=== PATIENT | male | born 1995 | race Caucasian/White ===

== ENCOUNTER 2017-06-23 19:44 | Emergency (ER) | payer MEDICAID ==
[~2017-06-23] VITALS: Ht 177.8 cm; Wt 70.8 kg
[~2017-06-23 19:44] MED LIST: ADVIL200 MG PO; AMOXICILLIN 50500 MG PO; FIORICET1 CAP PO; IBU800 MG PO; IBUPROFEN800 MG PO; KEFLEX 250MG.250 MG PO; NAPROSYN500 M1 PO; PREDNISONE 20MG20 MG PO; SINGULAIR10 MG PO; TESSALON PERLE100 MG PO; ZITHROMAX Z PA250 MG PO
--- NOTE | 2017-06-23 20:53 | Emergency Room Report ---
History of Present Illness Time Seen by 2009 Presenting Problem in Triage Pt arrived:Walked Presenting Problem:Laceration to right wrist from broken glass. Onset of symptoms date/time:06/23/1706/01/1900 or onset unknown for: Treatment Prior to Arrival: [employer]TE[employer]CE [employer] Provided by: Sepsis Risk Assessment: Temp: 97.4 B/P: 149/85 MAP: 106 Pulse: 89 Resp: 20 Recent fever? N Clinical Suspician of Infection? N Mental Status: 1 - Regular (Normal Baseline) Sepsis Risk:Low Sepsis Risk Have you (or family members/close friends) recently traveled outside the [place]? N If Yes, where/when: Have you had exposure to infectious disease within the past month? N TB? Other? Specify: Source patient, RN notes reviewed, old records Exam Limitations no limitations Comment lac rt volar wrist from window this pm Cardiac Chest Pain Chest pain indicative of cardiac No Timing/Duration this evening Severity moderate ALLERGIES Coded Allergies: Sulfa (Sulfonamide Antibiotics) (Mild, 12/09/15) cefaclor (From CECLOR) (Mild, 12/09/15) codeine (Mild, 12/09/15) erythromycin base (Mild, 12/09/15) Home Medications Active Scripts Ibuprofen (Ibuprofen 800MG) 800 MG PO QIDP PRN pain #30 TAB Prov: 04/07/17 History Medical History General CAD? No Angina: No AK: No Hypertension? No Hyperlipidemia? No CHF? No DVT? No PE? No COPD? No Asthma? Yes Anemia? No GERD? No Gastric ulcers? No GI Bleed? No Hernia? No Thyroid Problems? No Hypothyroidism? No CVA? No Seizures? No Diabetes? No Renal Insuffiency? No End Stage Renal Disease? No UTI? No Stones? No BPH? No GB Disease: No Nephritic Syndrome? No Asplenia? No Hepatitis? No Sickle Cell Disease? No Arthritis? No Migraines? Yes Cataracts? No Glaucoma? No MRSA? No HIV? No TB? No Anxiety? No Depression? No Cancer? No More? No Immunization Hx DT/Tetanus 1-4 Years Ago Surgical Hx Previous Surgery?Y BILATERAL HERNIA REPAIR ORAL SURGERY Family History Family Hx Diabetes No Hypertension No Cancer No TB No Social History Smoking Hx Smoker: Current Every Day Smoker Tobacco: Yes Type Cigarettes Packs/day < 1 Pack Are you/the child exposed to second-hand smoke: Yes Alcohol Alcohol: No Drugs none Review of Systems All Other Systems Reviewed and Negative Constitutional denies fever Eyes denies drainage ENT denies: ear discharge, epistaxis. Respiratory denies cough, denies shortness of breath Cardiovascular denies chest pain, denies palpitations, denies syncope Gastrointestinal denies abdominal pain, denies diarrhea, denies vomiting Genitourinary denies: dysuria, frequency, hesitancy, hematuria. Musculoskeletal denies back pain, denies joint pain, denies joint swelling, denies neck pain Skin see HPI, denies rash, other Psychiatric/Neurological denies headache, denies seizure Physical Exam Vital Signs Vital Signs Date Time Temp Pulse Resp B/P Pulse O2 O2 Flow FiO2 Ox Delivery Rate 06/23 1947 97.4 89 20 149/85 100 - WBC >12,000 or <4,000 or 10% bands? 2 or more SIRS Criteria Met? B/P:149/85 MAP:106 Creatinine >2.0? UA output<0.5ml/kg/hr for 2 hrs? Platelet count >100,000? Lactate >2.0mmol/1? INR >1.2 or PTT > than 60 sec? Evidence of Organ Dysfunction? Provider documented clinical suspician of infection? N Sepsis Criteria Count: 1 Sepsis Risk: Low Sepsis Risk General Appearance no apparent distress Eye Exam - bilateral eye PERRL, bilateral eye EOMI Ear, Nose, Throat normal ENT inspection Neck supple Respiratory Status No: respiratory distress. Cardiovascular regular rate/rhythm Peripheral Pulses Pulses normal Yes Gastrointestinal soft Extremities normal inspection Strength 4 Upper Ext (L), 4 Upper Ext (R), 4 Lower Ext (L), 4 Lower Ext (R) Neurologic alert, senior media director II-XII nml as tested, no motor/sensory deficits Reflexes Reflexes normal Yes Mental status normal mood/affect Skin laceration(s) Lymphatic no adenopathy (1 cm volar wrist - radial with) Specific normal consolability (tendon ok. no fb ) Medical Decision Making LABS/Meds/Orders Pt receiving controlled substance in ED? No Results/Orders Current Medication Orders Sig/Beatriz Start time Last Medication Dose Route Stop Time Status Admin Diphtheria/Pertussis/ 0.5 ML ONCE ONE 06/23 2000 DC 06/23 Tetanus Vacc IM 06/23 Tetanus/Diphtheria 0.5 ML ONCE ONE 06/23 2000 CAN Toxoids Adsorbed IM 06/23 2001 Diphtheria/Pertussis/ 0 .STK-MED ONE 06/23 1954 DC Tetanus Vacc IM Orders Procedure Date/time Status WRIST-3 VIEWS-RT 06/23 1953 Active XRAY/CT/US XRAY/CT/US XRAY wrist XR interpretation by reviewed by me Xray Results normal/NAD Procedures Laceration/Wound Repair Laceration/Wound Repair Risks/benefits discussed with pt/guardian? Yes Tetanus status up to date Wound Location wrist Wound Length (cm) 1 Wound's Depth, Shape sucutaneous tissue Wound Explored no FB identified Risk of retained FB explained to pt/guardian? Yes Irrigated w/ Saline (ccs) 0 Wound Prep Hibiclens, Saline Anesthesia 1% Lidocaine, Local Volume Anesthetic (ccs) 2 Wound Debrided none Wound Repaired With sutures Suture Size/Type 4:0, Ethilon Layer Closure No Total Number Sutures 3 Sterile Dressing Applied Yes Splint Applied No Sling Applied No Departure Departure Time of Disposition 2046 Disposition DC Home or Self Care(routine) Clinical Impression Primary Impression: Wrist laceration Qualifiers: Encounter type: initial encounter Laterality: right Qualified Code: S61.511A - Laceration without foreign body of right wrist, initial encounter Condition STABLE Patient Instructions DI for Laceration Repair Additional Instructions suture out 10 days and recheck if any problems Discharge Counseling Counseled pt/family regarding diagnosis, test results, follow up needs ED Critical Care Critical Care No at 2052
[2017-06-23 20:55] VITALS: BP 132/89
--- NOTE | 2017-06-24 09:57 | RADIOLOGY REPORT PS360 ---
WRIST-3 VIEWS-RT HISTORY: Pain, laceration LACERATION FROM GLASS ORDERING PHYSICIAN: Vangie Hansen MD PATIENT AGE: 21 years COMPARISON: 01/08/2016 FINDINGS: No fracture or dislocation. No lytic or blastic change. There is normal mineralization.. The joint spaces are well-preserved. No significant degenerative/arthritic changes. No erosive changes evident.. There is an old right metacarpal fracture. No obvious radio opaque foreign body. IMPRESSION: No acute finding
--- OUTSIDE RECORDS SUMMARY | 2017-06-28 03:40 | External Medical Summary Rpt | CCD ---
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 AMBULANCE AMBULANCE PER SERVICE SERVICE STATUTE MILE AMB A0427 [facility] SERVICE 3 AMBULANCE AMBULANCE ALS SERVICE SERVICE EMERGENCY TRANSPORT LEVEL 1 3D 03452 [facility] [facility] RENDERING 3 MEDICAL MANFRED IMAGING W/INTERP& [place] [address] [facility] HIPOLITO MAXILLOFA 3 MEDICAL MANFRED CIAL W/O IMAGING CONTRAST ASS MATERIAL CT THORAX 08222 [facility] HIPOLITO W/O 3 MEDICAL MANFRED CONTRAST IMAGING MATERIAL ASS LIPID 64044 COMBINED COMBINED PANEL 3 PHYSICIAN PHYSICIAN S LA S LA GENERAL 44212 COMBINED COMBINED HEALTH 3 PHYSICIAN PHYSICIAN PANEL S LA S LA SEDIMENTA 55899 COMBINED COMBINED TION RATE 3 PHYSICIAN PHYSIC[place] [address] COMBINED COMBINED FREE 3 PHYSICIAN PHYSICIAN THYROXINE S LA S LA PARTICLE 87719 COMBINED COMBINED AGGLUTINA 3 PHYSICIAN PHYSICIAN TION S LA S LA SCREEN EACH ANTIBODY LEVEL III 33095 PATHOLOGY ELIAN JUANITA SURG 2 & PATHOLOGY CYTOLOGY LAB GROSS&JUANITA ROSCOPIC EXAM EXCISION 14359 [facility] GANGLION 2 SURGERY SURGERY WRIST CENTER CENTER DORSAL/VO LAR PRIMARY RADEX [address] WRIST 2 2 [facility] VIEWS INC INC RADEX 99032 VANESA MCMILLAN HAND 2 2 MEDICAL MANFRED VIEWS IMAGING ASS RADEX [address] WRIST 2 [facility] COMPLETE INC INC MINIMUM [address] V[address] C 0 [facility] EXAMINATI INC INC ON ANKLE [address] RADEX [address] ANKLE 0 [facility] COMPLETE INC INC MINIMUM 3 VIEWS TDAP 10006 [facility] 7 0 ELEMENTAR ELEMENTAR YRS/> IM Y SCHOOL Y [facility] RADIOLOGI 12432 VANESA HIPOLITO, C EXAM 0 MEDICAL SNOW KNEE IMAGING COMPLETE ASSOCIATE 4/MORE S VIEWS RADIOLOGI [address] C 0 [facility] EXAMINATI INC INC ON KNEE 1/[address] V[address] C 0 [facility] EXAMINATI INC INC ON KNEE [address] VIEWS RADEX [address] ELBOW 2 9 [facility] VIEWS INC INC RADEX [address] ELBOW 9 [facility] COMPLETE INC INC MINIMUM 3 VIEWS ANALGESIA D9230 LAURA LAURA 9 DMD, DMD, ANXIOLYSI BEBO BEBO S INHALATIO N OF NITROUS OXIDE ANALGESIA D9230 LAURA LAURA 9 DMD, DMD, ANXIOLYSI BEBO BEBO S INHALATIO N OF NITROUS OXIDE ANALGESIA D9230 LAURA LAURA 9 DMD, DMD, ANXIOLYSI BEBO BEBO S INHALATIO N OF NITROUS OXIDE RADEX [address] CLAVICLE 8 [facility] COMPLETE INC INC RADEX [address] SHOULDER 8 [facility] COMPLETE INC INC MINIMUM 2 VIEWS CLOSURE [address] SKIN&SUBC 8 [facility] UTANEOUS INC INC TISSUE OTHER SITES COMPRE 15233 KRISTINE CARMONA, AUDIOMETR 8 PETER G PETER G Y THRESHOLD EVAL SP RECOGNIJ TYMPANOME 62452 KRISTINE CARMONA, TRY 8 PETER Solis PETER Solis ACOUSTIC 02697 KRISTINE CARMONA, REFLEX 8 PETER Will PETER Will THRESHOLD RADEX [address] ANKLE 8 [facility] COMPLETE INC INC MINIMUM 3 VIEWS RADIOLOGI [address] C 8 [facility] EXAMINATI INC INC [place] 2 [place] [address] STREPTOCO 8 [facility] CCUS INC INC GROUP A CLOSURE 86.59 WILFRED HO & TALYA SINCLAIR SUBCUTANE OUS NEC Encounters Encounter Start End Date Code Location Performer Type Date EMERGENCY 24494 EMMY JIANG 7 7 [facility] T VISIT MODERATE SEVERITY OFFICE 79640 JOHNATHAN ESCALONA 7 7 T VISIT 15 MINUTES EMERGENCY 30411 [facility] 7 7 [facility] T VISIT LOW/MODER SEVERITY HOSPITAL [facility] 7 7 [facility] T OFFICE 91811 [facility] 6 6 DAIANA DAIANA T VISIT 15 MINUTES OFFICE 28550 [facility] 6 6 DAIANA DAIANA T VISIT 15 MINUTES OFFICE 06006 JOHNATHAN MANN [facility] 6 6 DAIANA DAIANA T VISIT 15 MINUTES HOSPITAL [facility] - 6 6 [facility] OUT[facility]IEN [facility] - 6 6 [facility] T EMERGENCY 48801 [facility] 6 6 [facility] T VISIT LIMITED/M INOR PROB HOSPITAL [facility] - 6 6 [facility] OUTPATIEN [facility] - 6 6 [facility] - 6 6 [facility] OUTPATIEN [facility] T EMERGENCY 07004 EMMY JIANG 6 6 PHYSICIAN JUANITA DEPARTMEN S, PLLC T VISIT HIGH/URGE NT SEVERITY EMERGENCY 45669 [facility] 6 6 [facility] DEPARTMEN INC T VISIT LOW/MODER SEVERITY OFFICE [address] OUTPATIEN 6 6 [facility] T VISIT HOSPITAL 15 MINUTES EMERGENCY 64369 EMMY CRUZ 6 6 PHYSICIAN DEPARTMEN [facility] PLL[facility] T VISIT MODERATE SEVERITY HOSPITAL [facility] - 6 6 [facility] OUTPATIEN INC T EMERGENCY 27202 [facility] 6 6 [facility] DEPARTMEN INC T VISIT LIMITED/M INOR PROB OFFICE 85935 JOHNATHAN ESCALONA 6 6 DAIANA DAIANA T VISIT 15 MINUTES OFFICE 55518 [facility] DEPT 10 WandrianO WandrianO MINUTES OFFICE 78104 JOHNATHAN HUTCHINSONPATIEN 5 5 DAIANA DAIANA T VISIT 15 MINUTES OFFICE 10970 [facility] VIS[facility] DEPT 10 HARRISO HARRISO MINUTES OFFICE 23668 [facility] VISIT DEPT DEPT 10 [place] MINUTES OFFICE 30490 [facility] 5 [facility] VISIT DEPT DEPT 10 [place] MINUTES OFFICE 35784 JOHNATHAN ESCALONA 5 5 DAIANA DAIANA T VISIT 15 MINUTES OFFICE 29762 [facility] VISIT DEPT DEPT 10 [place] MINUTES OFFICE 12543 JOHNATHAN ESCALONA 5 5 DAIANA DAIANA T VISIT 15 MINUTES OFFICE 81336 [facility] VISIT DEPT DEPT 10 DARREN BANKS MINUTES OFFICE 57657 JOHNATHAN ANILPIPPA OUTPATIEN 5 5 DAIANA DAIANA T VISIT 15 MINUTES OFFICE 06321 [facility] 5 [facility] T VISIT DEPT DEPT 10 DARREN BANKS MINUTES EMERGENCY 35955 OZZIE HORNE, 5 5 JR ELZ JR ELZ [facility] T VISIT MODERATE SEVERITY OFFICE 57193 JOHNATHAN MANN OUTPATIEN 5 5 DAIANA DAIANA T VISIT 15 MINUTES OFFICE 22770 [facility] ERIC OUTPATIEN 5 5 [facility] T VISIT HOSPITAL 10 MINUTES OFFICE 89294 [facility] VISIT DEPT DEPT 10 DARREN ENGLEO MINUTES OFFICE 92783 [facility] 5 [facility] T VISIT DEPT DEPT 10 DARREN ENGLEO MINUTES OFFICE 78536 [facility] CASTELANEY OUTPATIEN 5 5 [facility] T VISIT HOSPITAL 15 MINUTES OFFICE 07665 [facility] 5 [facility] VISIT DEPT DEPT 10 DARREN ENGLEO MINUTES OFFICE 58814 [facility] 5 5 [facility] T VISIT DEPT DEPT 10 DARREN BANKS MINUTES OFFICE 99560 JOHNATHAN MANN OUTPATIEN 5 5 DAIANA DAIANA T VISIT 15 MINUTES OFFICE 25622 [facility] VISIT DEPT DEPT 10 DARREN ENGLEO MINUTES OFFICE 59286 [facility] OUTPAT[facility] 5 5 [place] 30 ORTHOPAED MINUTES [facility] OFFICE 14125 JOHNATHAN MANN OUTPATIEN 5 5 DAIANA DAIANA T VISIT 15 MINUTES OFFICE 40543 [facility] VISIT DEPT DEPT 10 DARREN BANKS MINUTES OFFICE 51415 JOHNATAHN MANN OUTPATIEN 5 5 DAIANA DAIANA T VISIT 15 MINUTES OFFICE 75693 JOHNATHAN MANN OUTPATIEN 5 5 DAIANA DAIANA T VISIT 15 MINUTES OFFICE 36357 JOHNATHAN MANN OUTPATIEN 5 5 DAIANA DAIANA T VISIT 15 MINUTES OFFICE 56480 [facility] T VISIT DEPT DEPT 10 DARREN ENGLE MINUTES OFFICE 86096 DARIO BUSTAMANTE CONSULTAT 5 5 MEDICAL ION SERV NEW/ESTAB FOUNDATIO PATIENT N 60 MIN HOSPITAL UNIVERSIT - 5 5 [facility] OFF[facility] 99132 UNIVERSIT OUTPATI 5 [address] T [address] MINUTES OFFICE 18566 JOHNATHAN MANN OUTPATIEN 5 5 DAIANA DAIANA T VISIT 15 MINUTES OFFICE 92819 [facility] VISIT DEPT DEPT 10 DARREN ENGLE MINUTES OFFICE 30266 JOHNATHAN ANILPIPPA OUTPATIEN 5 5 DAIANA DAIANA T VISIT 15 MINUTES OFFICE 06607 [facility] OUTPATIEN 5 5 PHYSICIAN JUANITA T VISIT S GROUP 15 MINUTES OFFICE 30729 [facility] VISIT DEPT DEPT 10 DARREN BANKS MINUTES OFFICE 50000 ANILPIPPA JOHNATHAN OUTPATIEN 4 4 DAIANA DAIANA T VISIT 15 MINUTES OFFICE 57799 [facility] VISIT DEPT DEPT 10 DARREN BANKS MINUTES OFFICE 50446 ANILPIPPA JOHNATHAN OUTPATIEN 4 4 DAIANA DAIANA T VISIT 15 MINUTES OFFICE 97009 ANILPIPPA JOHNATHAN OUTPATIEN 4 4 DAIANA DAIANA T VISIT 15 MINUTES OFFICE 07734 [facility] VISIT DEPT DEPT 10 DARREN BANKS MINUTES OFFICE 56149 [facility] T VISIT DEPT DEPT 10 DARREN ABNKS MINUTES OFFICE 63877 [facility] 4 4 [facility] VISIT DEPT DEPT 10 DARREN BANKS MINUTES OFFICE 61737 ANILPIPPA JOHNATHAN OUTPATIEN 4 4 DAIANA DAIANA T VISIT 15 MINUTES OFFICE 38999 [facility] VISIT DEPT DEPT 10 DARREN WandrianFelicita MINUTES OFFICE 39540 [facility] VISIT DEPT DEPT 10 DARREN WandrianFelicita MINUTES OFFICE 27049 [facility] VISIT DEPT DEPT 10 WandrianFelicita Simplificare MINUTES OFFICE 77024 [facility] VISIT DEPT DEPT 10 WandrianFelicita Simplificare MINUTES OFFICE 94873 [facility] VISIT DEPT DEPT 10 WandrianFelicita Simplificare MINUTES OFFICE 80816 [facility] VISIT DEPT DEPT 10 WandrianFelicita Simplificare MINUTES OFFICE 46603 [facility] VISIT DEPT DEPT 10 WandrianFelicita Simplificare MINUTES OFFICE 70537 [facility] DEIDRE OUTPATIEN 4 4 PHYSICIAN JUANITA T VISIT S GROUP 15 MINUTES OFFICE 30500 JOHNATHAN MANN OUTPATIEN 4 4 DAIANA DAIANA T VISIT 15 MINUTES OFFICE 14031 [facility] VISIT DEPT DEPT 10 WandrianFelicita Simplificare MINUTES OFFICE 12968 [facility] T VISIT DEPT DEPT 10 WandrianFelicita Simplificare MINUTES OFFICE 04835 [facility] VISIT DEPT DEPT 10 WandrianFelicita Simplificare MINUTES OFFICE 93396 [facility] T VISIT DEPT DEPT 10 WandrianFelicita Simplificare MINUTES OFFICE 79387 JOHNATHAN MANN OUTPATIEN 4 4 DAIANA DAIANA T VISIT 15 MINUTES OFFICE 10629 [facility] T VISIT 5 DEPT DEPT MINUTES WandrianFelicita WandrianFelicita PERIODIC 41767 [facility] SIMONA PREVENTIV 4 4 PHYSICIAN JUSTEN HECTOR S GROUP PATIENT OFFICE 52005 [facility] T VISIT 5 DEPT DEPT MINUTES WandrianFelicita Simplificare OFFICE 20157 [facility] T VISIT 5 DEPT DEPT MINUTES Handipoints OFFICE 78271 JOHNATHAN MANN OUTPATIEN 4 4 DAIANA DAIANA T VISIT 15 MINUTES OFFICE 06566 JOHNATHAN MANN OUTPATIEN 4 4 DAIANA DAIANA T VISIT 15 MINUTES OFFICE 41810 [facility] T VISIT 5 DEPT DEPT MINUTES Wandrian Wandrian OFFICE 91339 JOHNATHAN ESCALONA 4 4 DAIANA DAIANA T VISIT 15 MINUTES OFFICE 07183 [facility] T VISIT 5 DEPT DEPT MINUTES Wandrian Wandrian OFFICE 27877 [facility] T VISIT 5 DEPT DEPT MINUTES Wandrian Wandrian OFFICE 21626 [facility] T VISIT 5 DEPT DEPT MINUTES Wandrian Wandrian OFFICE 16788 JOHNATHAN ESCALONA 4 4 DAIANA DAIANA T VISIT 15 MINUTES OFFICE 74015 JOHNATHAN ESCALONA 4 4 DAIANA DAIANA T VISIT 15 MINUTES OFFICE 90957 [facility] T VISIT 5 DEPT DEPT MINUTES Wandrian Wandrian OFFICE 52866 [facility] T VISIT 5 DEPT DEPT MINUTES Wandrian Wandrian OFFICE 58436 [facility] T VISIT 5 DEPT DEPT MINUTES Wandrian Wandrian OFFICE 23273 JOHNATHAN ESCALONA 4 4 DAIANA DAIANA T VISIT 15 MINUTES OFFICE 09172 JOHNATHAN HUTCHINSONPATISANDRA 4 4 DAIANA DAIANA T VISIT 15 MINUTES OFFICE 25343 [facility] T VISIT 5 DEPT DEPT MINUTES Wandrian Wandrian OFFICE 03128 JOHNATHAN ESCALONA 4 4 DAIANA DAIANA T VISIT 15 MINUTES OFFICE 56018 ARNOLD ARNOLD OUTPATIEN 4 4 DAIANA DAIANA T VISIT 15 MINUTES OFFICE 91182 [facility] VISIT 5 DEPT DEPT MINUTES D[facility]EN BANKS OFFICE 71888 [facility] VISIT 5 DEPT DEPT MINUTES D[facility]EN BANKS OFFICE 62383 ANILPIPPA JOHNATHAN OUTPATIEN 4 4 DAIANA DAIANA T VISIT 15 MINUTES OFFICE 62308 JOHNATHAN MANN OUTPATIEN 3 3 DAIANA DAIANA T VISIT 25 MINUTES Emergency ISAMAR BABIN MD (ER) 3 15:17 3 17:09 [facility] OFFICE 87232 [facility] VISIT 5 DEPT DEPT MINUTES [facility] OFFICE [address] OUTPATIEN 3 3 [facility] OFFICE 98729 JOHNATHAN MANN OUTPATIEN 3 3 DAIANA DAIANA T VISIT [address] MIN[address]ES OFFICE [address] OUTPATIEN 3 3 [facility] OFFICE [address] OUTPATIEN 3 3 [facility]AL HEAL OFFICE 97920 JOHNATHAN MANN OUTPATIEN 3 3 DAIANA DAIANA T VISIT 15 MINUTES OFFICE 39596 JOHNATHAN MANN OUTPATIEN 3 3 DAIANA DAIANA T VISIT 15 MINUTES OFFICE 83830 JOHNATHAN MANN OUTPATIEN 3 3 DAIANA DAIANA T VISIT [address] MIN[address]ES OFFICE [address] OUTPATIEN 3 3 [facility] T VISIT [facility] OFFICE [address] OUTPATIEN 3 3 [facility] T VISIT [facility] MINUT[facility] OFFICE 72763 JOHNATHAN ESCALONA 3 3 DAIANA DAIANA T VISIT 15 MINUTES OFFICE 96443 JOHNATHAN JOHNATHAN ESCALONA 3 3 DAIANA DAIANA T VISIT 15 MINUTES OFFICE 11684 JOHNATHAN JOHNATHAN KINGSTONEN 3 3 DAIANA DAIANA T VISIT 15 MINUTES OFFICE [address] [facility]PAT[facility] 3 3 [facility] 10 MINUTES OFFICE 64700 JOHNATHAN KINGSTONEN 3 3 DAIANA DAIANA T VISIT 15 MINUTES OFFICE [address] OUTPATIEN 3 3 [facility] T VISIT [facility] MINUT[facility] OFFICE [address] OUTPATIEN 3 3 [facility] VISIT [facility] MINUTES OFFICE [address] OUTPATIEN 3 3 [facility] VISIT [facility] MINUTES OFFICE [address] OUTPATIEN 3 3 [facility] VISIT [facility] MINUTES OFFICE 43887 JOHNATHAN KINGSTONEN 3 3 DAIANA DAIANA T VISIT 15 MINUTES OFFICE 98033 JOHNATHAN ESCALONA 3 3 DAIANA DAIANA T VISIT 15 MINUTES OFFICE 07552 [facility] VISIT 5 DEPT DEPT MINUTES KADIEFelicita DARREN OFFICE [address] OUTPATI[facility] 3 3 [facility] 10 MINUTES OFFICE 49724 JOHNATHAN MANN OUTPRINCESSEN 3 3 DAIANA DAIANA T VISIT 15 MINUTES OFFICE [address] [facility]PAT[facility] 3 3 [facility] 10 MINUTES OFFICE 68274 [facility] OUTPATIEN 2 2 [facility] 10 MINUTES OFFICE 89089 [facility] OUTPATIEN 2 2 [facility] 10 MINUTES OFFICE 76066 [facility] OUTPATIEN 2 2 [facility] 10 MINUTES OFFICE 72314 [facility] OUTPATIEN 2 2 [facility] MINUTES OFFICE 11865 ARNOLD ARNOLD OUTPATIEN 2 2 DAIANA DAIANA T VISIT 15 MINUTES OFFICE 13889 [facility] VISIT 5 DEPT DEPT MINUTES D[facility]EN BANKS OFFICE 00167 [facility] OUTPATIEN 2 2 [facility] 10 MINUTES OFFICE 08108 [facility] OUTPATIEN 2 2 [facility] MINUTES OFFICE 54757 [facility] OUTPATIEN 2 2 [facility] MINUTES OFFICE 71163 [facility] OUTPATIEN 2 2 [facility] MINUTES OFFICE 57777 [facility] OUTPATIEN 2 2 [facility] MINUTES OFFICE 50007 [facility] DOMINGO OUTPATIEN 2 2 [facility]IS[facility] MINUTES OFFICE 37515 [facility] VISIT DEPT DEPT 10 HARRISO WandrianO MINUTES OFFICE 10430 JOHNATHAN MANN OUTPATIEN 2 2 DAIANA DAIANA T VISIT 15 MINUTES OFFICE 54925 [facility] OUTPATIEN 2 2 [facility] MINUT[facility] OFFICE 52518 [facility] OUTPATIEN 2 2 [facility] [address]ES OFFICE [address] [facility]PAT[facility] 2 2 [facility] 10 MINUTES OFFICE 05334 [facility] OUTPATIEN 2 2 [facility] 15 MINUTES OFFICE 83427 [facility] OUTPATIEN 2 2 [facility] 15 MINUTES OFFICE 80343 JOHNATHAN ESCALONA 2 2 DAIANA DAIANA T VISIT 15 MINUTES OFFICE 46444 JOHNATHAN ESCALONA 2 2 DAIANA DAIANA T VISIT 15 MINUTES OFFICE [address] OUTPAT[facility] 2 2 [facility] 10 MINUTES OFFICE 22946 JOHNATHAN ESCALONA 2 2 DAIANA DAIANA T VISIT 15 MINUTES OFFICE [address] OUTPAT[facility] 2 2 [facility] 10 MINUTES [facility]OSP[facility] - 2 2 MEM DIE[facility]ON[facility] OUTPATIEN INC T OFFICE 36754 JOHNATHAN ESCALONA 1 1 DAIANA DAIANA T VISIT [address] MIN[address]ES OFFICE [address] [facility]PAT[facility] 1 1 [facility] [address] [facility] OFFICE [address] OUTPATIEN 1 1 [facility] 10 MINUTES OFFICE 70982 JOHNATHAN ESCALONA 1 1 DAIANA DAIANA T VISIT 15 MINUTES OFFICE 32674 JOHNATHAN ESCALONA 1 1 DAIANA DAIANA T VISIT 15 MINUTES OFFICE 86100 JOHNATHAN ESCALONA 1 1 DAIANA DAIANA T VISIT 15 MINUTES OFFICE 67720 ARNOLD ARNOLD OUTPATIEN 1 1 DAIANA DAIANA T VISIT 15 MINUTES OFFICE [address] [facility] 1 1 [facility] 10 MINUTES OFFICE 16792 JOHNATHAN MANN OUTPATIEN 1 1 DAIANA DAIANA T VISIT 15 MINUTES OFFICE [address] [facility] 1 1 [facility] 10 MINUTES OFFICE 32371 [place] DANIEL OUTPATIEN 1 1 [facility] T VIS[facility] INTERNAL 10 MEDI MINUTES OFFICE 57383 [facility] 1 1 [facility] 10 MINUTES OFFICE 71019 JOHNATHAN MANN OUTPATIEN 1 1 DAIANA DAIANA T VISIT 15 MINUTES OFFICE 25113 [facility]PAT[facility] 1 1 [facility] [address]ES OFF[address] [facility] 1 1 [facility] 10 MIN[facility] OFFICE [address] [facility] 0 [facility] [address] [facility] OFFICE [address] [facility] 0 [facility] 10 MINUTES OFFICE 42795 [facility] 0 0 [facility] 10 MINUTES OFFICE 19065 JOHNATHAN MANN OUTPATIEN 0 0 DAIANA DAIANA T VISIT 15 MINUTES [facility] T EMERGENCY 70751 [facility] DEPART[facility] T VISIT LOW/MODER SEVERITY EMERGENCY 78195 DAO PALACIOS 0 0 EMERGENCY [facility] T VISIT MODERATE SEVERITY OFFICE 30872 JOHNATHAN MANN OUTPATIEN 0 0 [facility] W T VISIT 15 MINUTES OFFICE 01846 JOHNATHAN MANN OUTPATIEN 0 0 [place] [place] W T VISIT 15 MINUTES OFFICE 29040 JOHNATHAN MANN OUTPATIEN 0 0 [place] W [place] W T VISIT 15 MINUTES EMERGENCY 40274 DAO CARDOZA, 0 0 EMERGENCY [facility] DEPARTMEN SERVICES O T VISIT MODERATE ASSOCIATE SEVERITY S EMERGENCY 76119 [facility] DEPARTMEN INC T VISIT LOW/MODER SEVERITY [facility] T PERIODIC 27406 [facility] 0 ELEMENTAR ELEMENTAR E MED EST [facility] OFFICE 45876 JOHNATH[facility] MANN OUTPATIEN 0 0 [facility] THORNTON W T VISIT 15 MINUTES OFFICE 93050 [facility] MANN OUTPATIEN 0 0 [facility] W [facility] W T VISIT 15 MINUTES [facility] INC T OFFICE 29462 JOHNATH[facility] MANN OUTPATIEN 9 9 [place] W [place] W T VISIT 15 MINUTES OFFICE 90800 JOHNATHAN MANN OUTPATIEN 9 9 [place] W [place] W T VISIT 15 MINUTES EMERGENCY 67885 [facility] 9 9 [facility] DEPARTMEN INC T VISIT LOW/MODER SEVERITY [facility] - 9 9 [facility] OUTPATIEN INC T EMERGENCY 72543 DAO JIANG, 9 9 EMERGENCY [facility] DEPARTMEN SERVICES T VISIT HIGH/URGE ASSOCIATE NT S SEVERITY OFFICE 98901 [facility] MANN OUTPATIEN 9 9 [facility] W T VISIT 15 MINUTES OFFICE 13730 JOHNATHAN MANN OUTPATIEN 9 9 [place] W [place] W T VISIT 15 MINUTES OFFICE 94890 JOHNATHAN MANN OUTPATIEN 8 8 [place] W [place] W T VISIT 15 MINUTES EMERGENCY 03612 [facility] 8 8 [facility] DEPARTMEN INC T VISIT LOW/MODER SEVERITY [facility] 8 8 [facility] OUTPATIEN INC T EMERGENCY 73735 SHEILA MCCALL, 8 8 [facility] H DEPARTMEN CORPORATI T VISIT ON MODERATE SEVERITY OFFICE 93281 JOHNATHAN MANN OUTPATIEN 8 8 [facility] THORNTON W T VISIT 25 MINUTES [facility] 8 8 [facility] OUT[facility] INC T EMERGENCY 01507 [facility] 8 8 [facility] DEPARTMEN INC T VISIT LOW/MODER SEVERITY EMERGENCY 42508 SHEILA CARDOZA, 8 8 [facility] VISIT ON MODERATE SEVERITY EMERGENCY [id number] [facility] 8 8 [facility] DEPART[facility] INC T VISIT LOW/MODER SEVERITY [facility] OUTPATIEN INC T OFFICE [id number] JOHNATHAN MANN OUTPATIEN 8 8 NORBERTO THORNTON W T VISIT 15 MINUTES OFFICE [id number] KRISTINE CARMONA OUTPATIEN 8 8 PETER Solis T NEW 30 MINUTES OFFICE [id number] JOHNATHAN MANN OUTPATIEN 8 8 NORBERTO THORNTON W T NEW 30 MINUTES [facility] 8 8 [facility] OUT[facility] INC T [facility] - 8 8 [facility] OUT[facility] T OFFICE [id number] LICPOLA SOTO 8 8 RON Villarreal VISIT INTERNAL 15 MED MINUTES OFFICE 39577 [place] GREGORIO ESCALONA 8 8 [place] JR, T VISIT INTERNAL HEALDIO Rocha 15 MED MINUTES
--- OUTSIDE RECORDS SUMMARY | 2017-06-28 03:40 | External Medical Summary Rpt | CCD ---
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 62014 JOHNATHAN MANN OUTPATIEN 3 3 DAIANA DAIANA T VISIT 15 MINUTES OFFICE [address] [facility] [facility] 3 3 [facility] OFFICE [address] [facility] [facility] 3 3 [facility] MIN[facility] OFFICE 44539 JOHNATHAN ESCALONA 3 3 DAIANA DAIANA T VISIT 15 MINUTES OFFICE 20819 JOHNATHAN JOHNATHAN ESCALONA 3 3 DAIANA DAIANA T VISIT 15 MINUTES OFFICE 27112 JOHNATHAN JOHNATHAN KINGSTONEN 3 3 DAIANA DAIANA T VISIT 15 MINUTES OFFICE [address] [facility] [facility] 3 3 [facility] 10 MINUTES OFFICE 53514 JOHNATHAN KINGSTONEN 3 3 DAIANA DAIANA T VISIT 15 MINUTES OFFICE [address] [facility] [facility] 3 3 [facility] OFFICE [address] [facility] [facility]PATI[facility] 3 3 [facility] MINUTES OFFICE [address] [facility]PAT[facility] 3 3 [facility] MINUTES OFFICE [address] [facility] [facility] 3 3 [facility] MINUT[facility] OFFICE 83220 JOHNATHAN KINGSTONEN 3 3 DAIANA DAIANA T VISIT 15 MINUTES OFFICE 03686 JOHNATHAN ESCALONA 3 3 DAIANA DAIANA T VISIT 15 MINUTES OFFICE 93153 [facility] VISIT 5 DEPT DEPT MINUTES KADIEFelicita DARREN OFFICE [address] [facility] 3 3 [facility] 10 MINUTES OFFICE 07194 JOHNATHAN MANN OUTPRINCESSEN 3 3 DAIANA DAIANA T VISIT 15 MINUTES OFFICE [address] [facility] [facility] 3 3 [facility] 10 MINUTES OFFICE 43480 [facility] OUTPATIEN 2 2 [facility] 10 MINUTES OFFICE 88911 [facility]PATI[facility] 2 2 [facility] 10 MINUTES OFFICE 05903 [facility]PATIEN 2 2 [facility] 10 MINUTES OFFICE 15397 [facility]PATIEN 2 2 [facility] MINUT[facility] OFFICE 30066 ARNOLD ARNOLD OUTPATIEN 2 2 DAIANA DAIANA T VISIT 15 MINUTES OFFICE 25644 [facility] VISIT 5 DEPT DEPT MINUTES [facility] OFFICE 48666 [facility]PATIEN 2 2 [facility] 10 MINUTES OFFICE 51538 [facility] OUTPATIEN 2 2 [facility] MINUTES OFFICE 75444 [facility]PATIEN 2 2 [facility] MINUTES OFFICE 72385 [facility]PATIEN 2 2 [facility] MINUTES OFFICE 31026 [facility] OUTPATIEN 2 2 [facility] MINUTES OFFICE 73865 [facility] OUTPATIEN 2 2 [facility] MINUTES OFFICE 88199 [facility] VISIT DEPT DEPT 10 [place] AutopilotO MINUTES OFFICE 36966 JOHNATHAN MANN OUTPATIEN 2 2 DAIANA DAIANA T VISIT 15 MINUTES OFFICE 23926 [facility]PATIEN 2 2 [facility] MINUT[facility] OFFICE 54221 [facility]PATIEN 2 2 [facility] 15 MINUTES OFFICE [address] [facility] 2 2 [facility] 10 MINUTES OFFICE 02106 [facility]PATIEN 2 2 [facility] 15 MINUTES OFFICE 92598 [facility]PATIEN 2 2 [facility] 15 MINUTES OFFICE 57002 JOHNATHAN ESCALONA 2 2 DAIANA DAIANA T VISIT 15 MINUTES OFFICE 41583 JOHNATHAN ESCALONA 2 2 DAIANA DAIANA T VISIT 15 MINUTES OFFICE [address] [facility] 2 2 [facility] 10 MINUTES OFFICE 30574 JOHNATHAN ESCALONA 2 2 DAIANA DAIANA T VISIT 15 MINUTES OFFICE [address] [facility] [facility] 2 2 [facility] 10 [facility]UTES [facility] 2 [facility] OUTPATIEN INC T OFFICE 30396 JOHNATHAN ESCALONA 1 1 DAIANA DAIANA T VISIT 15 MINUTES OFFICE [address] [facility] 1 1 [facility] [address] [facility]ES OFFICE [address] [facility] [facility] 1 1 [facility] 10 MINUTES OFFICE 86264 JOHNATHAN ESCALONA 1 1 DAIANA DAIANA T VISIT 15 MINUTES OFFICE 85771 JOHNATHAN ESCALONA 1 1 DAIANA DAIANA T VISIT 15 MINUTES OFFICE 85511 JOHNATHAN ESCALONA 1 1 DAIANA DAIANA T VISIT 15 MINUTES OFFICE 45732 ARNOLD ARNOLD OUTPATIEN 1 1 DAIANA DAIANA T VISIT 15 MINUTES OFFICE [address] [facility] [facility] 1 1 [facility] 10 MINUTES OFFICE 10670 JOHNATHAN MANN OUTPATIEN 1 1 DAIANA DAIANA T VISIT 15 MINUTES OFFICE [address] [facility] [facility] 1 1 [facility] 10 MINUTES OFFICE 72201 [facility] DANIEL OUTPATIEN 1 1 [facility] T VISIT INTERNAL 10 MEDI MINUTES OFFICE 85877 [facility] OUTPATIEN 1 1 [facility] 10 MINUTES OFFICE 17930 JOHNATHAN MANN OUTPATIEN 1 1 DAIANA DAIANA T VISIT 15 MINUTES OFFICE 45982 [facility]PATIEN 1 1 [facility] [address]ES OFFICE [address] [facility] 1 1 [facility] [address] MIN[address] OFFICE [address] [facility] [facility] 0 0 [facility] [address]ES OFFICE [address] [facility] 0 0 [facility] 10 MINUTES OFFICE 49565 [facility]PATIEN 0 0 [facility] 10 MINUTES OFFICE 69696 JOHNATHAN MANN OUTPATIEN 0 0 DAIANA DAIANA T VISIT 15 MINUTES [facility]PATIEN [facility] T EMERGENCY 36715 [facility] DEPARTMEN INC T VISIT LOW/MODER SEVERITY EMERGENCY 83724 DAO PALACIOS 0 0 EMERGENCY [facility] DEPARTMEN SERVICES T VISIT MODERATE SEVERITY OFFICE 91720 JOHNATHAN MANN OUTPATIEN 0 0 [facility] W T VISIT 15 MINUTES OFFICE 99382 JOHNATHAN MANN OUTPATIEN 0 0 [place] W [place] W T VISIT 15 MINUTES OFFICE 63786 JOHNATHAN MANN OUTPATIEN 0 0 [place] W [place] W T VISIT 15 MINUTES EMERGENCY 14296 DAO CARDOZA, 0 0 EMERGENCY [facility] DEPARTMEN SERVICES O T VISIT MODERATE ASSOCIATE SEVERITY S EMERGENCY 26398 [facility] DEPARTMEN INC T VISIT LOW/MODER SEVERITY [facility] OUTPATIEN INC T PERIODIC 01053 [facility] PREVENTIV 0 0 ELEMENTAR ELEMENTAR E MED EST Y SCHOOL [facility] OFFICE 90456 JOHNATHAN MANN OUTPATIEN 0 0 [facility] THORNTON W T VISIT 15 MINUTES OFFICE 78973 JOHNATH[facility] MANN OUTPATIEN 0 0 [facility] [place] W T VISIT 15 MINUTES [facility] OUTPATIEN INC T OFFICE 67415 JOHNATHAN MANN OUTPATIEN 9 9 [place] [facility] [place] W T VISIT 15 MINUTES OFFICE 06879 JOHNATHAN MANN OUTPATIEN 9 9 [place] [facility] [place] W T VISIT 15 MINUTES EMERGENCY 77301 [facility] 9 9 [facility] DEPARTMEN INC T VISIT LOW/MODER SEVERITY [facility] 9 9 [facility] OUTPATIEN INC T EMERGENCY 68533 DAO JIANG, 9 9 EMERGENCY [facility] DEPARTMEN SERVICES T VISIT HIGH/URGE ASSOCIATE NT S SEVERITY OFFICE 05679 JOHNATHAN MANN OUTPATIEN 9 9 [facility] [place] W T VISIT 15 MINUTES OFFICE 83283 JOHNATHAN MANN OUTPATIEN 9 9 [place] [facility] [place] W T VISIT 15 MINUTES OFFICE 84600 JOHNATHAN MANN OUTPATIEN 8 8 [place] W [place] W T VISIT 15 MINUTES EMERGENCY 54841 [facility] 8 8 [facility] DEPARTMEN INC T VISIT LOW/MODER SEVERITY [facility] 8 8 [facility] OUTPATIEN INC T EMERGENCY 52309 SHEILA MCCALL, 8 8 [facility] H DEPARTMEN CORPORATI T VISIT ON MODERATE SEVERITY OFFICE 54237 JOHNATHAN MANN OUTPATIEN 8 8 [place] THORNTON W T VISIT 25 MINUTES [facility] 8 8 [facility] OUTPATIEN INC T EMERGENCY 79577 [facility] 8 8 [facility] DEPARTMEN INC T VISIT LOW/MODER SEVERITY EMERGENCY 18593 SHEILA CARDOZA, 8 8 [facility] T VISIT ON MODERATE SEVERITY EMERGENCY 44838 [facility] 8 8 [facility] DEPARTMEN INC T VISIT LOW/MODER SEVERITY [facility] 8 8 [facility] OUTPATIEN INC T OFFICE 43631 JOHNATHAN MANN OUTPATIEN 8 8 [place] THORNTON W T VISIT 15 MINUTES OFFICE 22433 KRISTINE CARMONA OUTPATIEN 8 8 PETER Solis T NEW 30 MINUTES OFFICE 23282 JOHNATHAN MANN OUTPATIEN 8 8 [place] THORNTON W T NEW 30 MINUTES [facility] 8 [facility] T [facility] 8 8 [facility]IEN INC T OFFICE 77860 LICPOLA SOTO 8 8 RON Villarreal VISIT INTERNAL 15 MED MINUTES OFFICE 10809 [place] GREGORIO ESCALONA 8 8 [place] JR, T VISIT INTERNAL HELADIO Rocha 15 MED MINUTES
--- OUTSIDE RECORDS SUMMARY | 2017-06-28 03:45 | External Medical Summary Rpt | CCD ---
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 VISIT 15 MINUTES OFFICE 59249 [facility] VISIT 5 DEPT DEPT MINUTES AspidaFelicita Aspida OFFICE 17281 [facility] 4 [facility] T VISIT 5 DEPT DEPT MINUTES Aspida Aspida OFFICE 78264 [facility] T VISIT 5 DEPT DEPT MINUTES [email or web address] OFFICE 01903 JOHNATHAN MANN OUTPATIEN 4 4 DAIANA DAIANA T VISIT 15 MINUTES OFFICE 25466 JOHNATHAN MANN OUTPATIEN 4 4 DAIANA DAIANA T VISIT 15 MINUTES OFFICE 82564 [facility] T VISIT 5 DEPT DEPT MINUTES [email or web address] OFFICE 06389 [facility] T VISIT 5 DEPT DEPT MINUTES Aspida Aspida OFFICE 53107 [facility] T VISIT 5 DEPT DEPT MINUTES Aspida Aspida OFFICE 65750 JOHNATHAN ESCALONA 4 4 DAIANA DAIANA T VISIT 15 MINUTES OFFICE 67802 JOHNATHAN MANN OUTPATIEN 4 4 DAIANA DAIANA T VISIT 15 MINUTES OFFICE 40502 [facility] VISIT 5 DEPT DEPT MINUTES Aspida Aspida OFFICE 48965 JOHNATHAN MANN OUTPATIEN 4 4 DAIANA DAIANA T VISIT 15 MINUTES OFFICE 78070 JOHNATHAN MANN OUTPATIEN 4 4 DAIANA DAIANA T VISIT 15 MINUTES OFFICE 29417 [facility] VISIT 5 DEPT DEPT MINUTES Aspida Aspida OFFICE 00853 [facility] VISIT 5 DEPT DEPT MINUTES Aspida Aspida OFFICE 06193 JOHNATHAN ESCALONA 4 4 DAIANA DAIANA T VISIT 15 MINUTES OFFICE 36603 JOHNATHAN MANN OUTPATIEN 3 3 DAIANA DAIANA T VISIT 25 MINUTES OFFICE 73587 [facility] 3 3 [facility] VISIT 5 DEPT DEPT MINUTES [email or web address] OFFICE 13372 [facility] ESCALONA 3 3 [facility] OFF[facility] 11577 JOHNATHAN ESCALONA 3 3 DAIANA DAIANA T VISIT 15 MINUTES OFFICE 09088 [facility] ESCALONA 3 3 [facility] OFFICE 12155 [facility]O ESCALONA 3 3 [facility] MIN[facility]AL OFFICE 72337 JOHNATHAN ESCALONA 3 3 DAIANA DAIANA T VISIT 15 MINUTES OFFICE 91211 JOHNATHAN ESCALONA 3 3 DAIANA DAIANA T VISIT 15 MINUTES OFFICE 50010 JOHNATHAN ESCALONA 3 3 DAIANA DAIANA T VISIT 15 MINUTES OFFICE 00034 [facility] ESCALONA 3 3 [facility] MINUT[facility] OFFICE 66168 [facility] ESCALONA 3 3 [facility] MINUTES OFFICE 82767 JOHNATHAN ESCALONA 3 3 DAIANA DAIANA T VISIT 15 MINUTES OFFICE 80451 JOHNATHAN ESCALONA 3 3 DAIANA DAIANA T VISIT 15 MINUTES OFFICE 48179 JOHNATHAN ESCALONA 3 3 DAIANA DAIANA T VISIT 15 MINUTES OFFICE 54630 [facility] ESCALONA 3 3 [facility] 10 MINUTES OFFICE 91852 JOHNATHAN ESCALONA 3 3 DAIANA DAIANA T VISIT 15 MINUTES OFFICE 28840 [facility] ESCALONA 3 3 [facility] MINUT[facility] OFFICE 24507 [facility] ESCALONA 3 3 [facility] MINUTES OFFICE [address] [facility] OUTPATIEN 3 3 [facility] MINUTES OFFICE [address] [facility] [address] OUTPATIEN 3 3 [facility] MINUT[facility] OFFICE 96484 JOHNATHAN MANN OUTPATIEN 3 3 DAIANA DAIANA T VISIT 15 MINUTES OFFICE 02767 JOHNATHAN MANN OUTPATIEN 3 3 DAIANA DAIANA T VISIT 15 MINUTES OFFICE [address] [facility] [facility]PATIEN 3 3 [facility] 10 MINUTES OFFICE 96491 [facility] VISIT 5 DEPT DEPT MINUTES DARREN ENGLEFelicita OFFICE 52318 JOHNATHAN MANN OUTPATIEN 3 3 DAIANA DAIANA T VISIT 15 MINUTES OFFICE 68438 [facility] OUTPATIEN 3 3 [facility] 10 MINUTES OFFICE 49535 [facility] ENGLEON OUTPATIEN 2 2 [facility] 10 MINUTES OFFICE [address] [facility] OUTPATIEN 2 2 [facility] 10 MINUTES OFFICE [address] [facility] OUTPATIEN 2 2 [facility] 10 MINUTES OFFICE [address] [facility] OUTPATIEN 2 2 [facility] MINUTES OFFICE 70459 [facility]IL[facility] JOHNATHAN OUTPATIEN 2 2 DAIANA DAIANA T VISIT 15 MINUTES OFFICE 00553 [facility] VISIT 5 DEPT DEPT MINUTES DARREN ENGLEO OFFICE [address] [facility] OUTPATIEN 2 2 [facility] 10 MINUTES OFFICE [address] [facility] OUTPATIEN 2 2 [facility] MINUTES OFFICE [address] [facility] OUTPATIEN 2 2 [facility] MINUTES OFFICE [address] [facility] OUTPATIEN 2 2 [facility] MINUTES OFFICE [address] [facility] OUTPATIEN 2 2 [facility] MINUTES OFFICE [address] [facility] OUTPATIEN 2 2 [facility] MINUTES OFFICE 25651 [facility] VISIT DEPT DEPT 10 DARRNE ENGLEO MINUTES OFFICE 25063 JOHNATHAN MANN OUTPATIEN 2 2 DAIANA DAIANA T VISIT 15 MINUTES OFFICE [address] [facility] OUTPATIEN 2 2 [facility] MINUTES OFFICE [address] [facility] OUTPATIEN 2 2 [facility] 15 MINUTES OFFICE [address] [facility] [facility]PATIEN 2 2 [facility] 10 MINUTES OFFICE 86143 [facility] OUTPATIEN 2 2 [facility] 15 MINUTES OFFICE [address] [facility] OUTPATIEN 2 2 [facility] 15 MINUTES OFFICE 73378 JOHNATHAN MANN OUTPATIEN 2 2 DAIANA DAIANA T VISIT 15 MINUTES OFFICE 44114 JOHNATHAN MANN OUTPATIEN 2 2 DAIANA DAIANA T VISIT 15 MINUTES OFFICE [address] [facility] [facility]PATIEN 2 2 [facility] 10 MINUTES OFFICE 81290 JOHNATHAN ESCALONA 2 2 DAIANA DAIANA T VISIT 15 MINUTES OFFICE [address] [facility] [address] [facility]PAT[facility] 2 2 [facility] 10 [facility]UTES [facility]PATI[facility] T OFFICE 16532 JOHNATHAN ESCALONA 1 1 DAIANA DAIANA T VISIT 15 MINUTES OFFICE 54198 [facility] ESCALONA 1 1 [facility] [address]ES OFF[facility] [address] [facility] [address] OUTPATIEN 1 1 [facility] 10 MINUTES OFFICE 70103 JOHNATHAN ESCALONA 1 1 DAIANA DAIANA T VISIT 15 MINUTES OFFICE 46164 JOHNATHAN ESCALONA 1 1 DAIANA DAIANA T VISIT 15 MINUTES OFFICE 34650 JOHNATHAN ESCALONA 1 1 DAIANA DAIANA T VISIT 15 MINUTES OFFICE 11554 JOHNATHAN ESCALONA 1 1 DAIANA DAIANA T VISIT 15 MINUTES OFFICE 09476 [facility] ESCALONA 1 1 [facility] 10 MINUTES OFFICE 07000 JOHNATHAN ESCALONA 1 1 DAIANA DAIANA T VISIT 15 MINUTES OFFICE 74478 [facility] ESCALONA 1 1 [facility] 10 MINUTES OFFICE 32670 [facility] DANIEL OUTCORNEL 1 1 [facility] T VISIT INTERNAL 10 MEDI MINUTES OFFICE 48509 [facility] ESCALONA 1 1 [facility] 10 MINUTES OFFICE 78310 JOHNATHAN ESCALONA 1 1 DAIANA DAIANA T VISIT 15 MINUTES OFFICE 16749 [facility] ESCALONA 1 1 [facility] [address] MIN[address]ES OFFICE [address] OUTPATIEN 1 1 [facility] [address] MIN[address]ES OFFICE [address] OUTPATIEN 0 0 [facility] [address]ES OFFICE [address] [facility] [facility]PATIEN 0 0 [facility] [address] OFFICE [address] OUTPATIEN 0 0 [facility] 10 MINUTES OFFICE 82443 JOHNATHAN HUTCHINSONPATIEN 0 0 DAIANA DAIANA T VISIT 15 MINUTES EMERGENCY 50774 [facility] 0 [facility] T VISIT LOW/MODER SEVERITY [facility] OUTPATIEN INC T EMERGENCY 45252 DAO PALACIOS 0 0 EMERGENCY GRE DEPARTMEN SERVICES T VISIT MODERATE SEVERITY OFFICE 52965 JOHNATHAN MANN OUTPATIEN 0 0 NORBERTO Johnson T VISIT 15 MINUTES OFFICE 57434 JOHNATHAN MANN OUTPATIEN 0 0 NORBERTO Johnson T VISIT 15 MINUTES OFFICE 60721 JOHNATHAN MANN OUTPATIEN 0 0 NORBERTO Johnson T VISIT 15 MINUTES EMERGENCY 85898 DAO CARDOZA, 0 0 EMERGENCY KAJAL DEPARTMEN SERVICES O T VISIT MODERATE ASSOCIATE SEVERITY S [facility] 0 [facility] OUTPATIEN [facility] T EMERGENCY 04441 [facility] 0 0 [facility] DEPARTMEN INC T VISIT LOW/MODER SEVERITY PERIODIC 80580 [facility] PREVENTIV 0 0 ELEMENTAR ELEMENTAR E MED EST Y SCHOOL Y [facility]OL PATIENT [facility] 12-17YRS [facility]INIC CLINIC OFFICE 57332 JOHNATHAN MANN OUTPATIEN 0 0 NORBERTO Johnson T VISIT 15 MINUTES OFFICE 59865 JOHNATHAN MANN OUTPATIEN 0 0 NORBERTO Johnson T VISIT 15 MINUTES [facility]OSP[facility] 0 [facility]EN [facility] T OFFICE 46660 JOHNATHAN MANN OUTPATIEN 9 9 NORBERTO Johnson T VISIT 15 MINUTES OFFICE 99405 JOHNATHAN MANN OUTPATIEN 9 9 NORBERTO Johnson T VISIT 15 MINUTES EMERGENCY 34114 DAO JIANG, [address] [facility] SERVICES T VISIT HIGH/URGE ASSOCIATE NT S SEVERITY EMERGENCY 80319 [facility] 9 9 [facility] DEPARTMEN INC T VISIT LOW/MODER SEVERITY [facility] - 9 9 [facility] OUTPAT[facility]EN INC T OFFICE 36880 JOHNATHAN MANN OUTPATIEN 9 9 NORBERTO Johnson T VISIT 15 MINUTES OFFICE 75991 JOHNATHAN MANN OUTPATIEN 9 9 NORBERTO Johnson T VISIT 15 MINUTES OFFICE 57412 JOHNATHAN MANN OUTPATIEN 8 8 NORBERTO Johnson T VISIT 15 MINUTES [facility] - 8 8 [facility] OUT[facility] INC T EMERGENCY 92239 [facility] 8 8 [facility] DEPARTMEN INC T VISIT LOW/MODER SEVERITY EMERGENCY 65931 SHEILA MCCALL, 8 8 [facility]POR[facility] T VISIT ON MODERATE SEVERITY OFFICE 12612 JOHNATHAN MANN OUTPATIEN 8 8 NORBERTO THORNTON W T VISIT 25 MINUTES [facility]OSP[facility] - 8 8 [facility] OUT[facility]EN INC T EMERGENCY 37063 [facility] 8 8 [facility] DEPARTMEN INC T VISIT LOW/MODER SEVERITY [facility] - 8 8 [facility] OUTPAT[facility]EN INC T EMERGENCY 09603 SOSA SORACHEL, 8 8 [facility] CORPOR[facility] O T VISIT ON MODERATE SEVERITY EMERGENCY 87511 [facility] 8 8 [facility] DEPART[facility] INC T VISIT LOW/MODER SEVERITY OFFICE 19037 JOHNATHAN MANN OUTPATIEN 8 8 NORBERTO Johnson T VISIT 15 MINUTES OFFICE 53382 KRISTINE CARMONA OUTPATIEN 8 8 PETER Solis T NEW 30 MINUTES HOSPITAL [facility] - 8 8 [facility] INC T OFFICE 28045 JOHNATHAN MANN OUTPATIEN 8 8 NORBERTO Johnson T NEW 30 MINUTES OFFICE 86881 [place] SUKHJINDER OUTCORNEL 8 8 RON Villarreal VISIT INTERNAL 15 MED MINUTES [facility] - 8 8 [facility] INC T OFF[facility] 42330 [facility] 8 8 Cherelle VELASQUEZ JR VISIT INTERNAL HELADIO F 15 MED MINUTES
--- OUTSIDE RECORDS SUMMARY | 2017-06-28 03:45 | External Medical Summary Rpt | CCD ---
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 [facility] M[facility] OUTPATIEN 3 3 DAIANA DAIANA T VISIT 15 MINUTES OFFICE [address] [facility] 3 [facility] 10 MINUTES OFFICE 93692 [facility] ENGLEON OUTPATIEN 2 2 [facility] 10 MINUTES OFFICE [address] [facility] 2 2 [facility] 10 MINUTES OFFICE [address] [facility] 2 2 [facility] 10 MINUTES OFFICE [address] [facility] 2 2 [facility] MINUTES OFFICE 53581 [facility] OUTPATIEN 2 2 DAIANA DAIANA T VISIT 15 MINUTES OFFICE 97389 [facility] 5 DEPT DEPT MINUTES DARREN ENGLEO OFFICE [address] [facility] 2 2 [facility] 10 MINUTES OFFICE [address] [facility]PAT[facility] 2 2 [facility] MINUT[facility] OFFICE [address] [facility]PAT[facility] 2 2 [facility] MINUTES OFFICE [address] [facility] 2 2 [facility] MINUTES OFFICE [address] [facility] 2 2 [facility] MINUTES OFFICE [address] [facility] 2 2 [facility] MINUTES OFFICE 70669 [facility] VIS[facility] DEPT DEPT 10 DARREN ENGLEO MINUTES OFFICE 80684 [facility] MANN OUTPATIEN 2 2 DAIANA DAIANA T VISIT 15 MINUTES OFFICE [address] [facility] 2 2 [facility] MINUTES OFFICE [address] [facility] 2 2 [facility] 15 MINUTES OFFICE [address] [facility] 2 2 [facility] 10 MINUTES OFFICE 18912 [facility] OUTPATIEN 2 2 [facility] 15 MINUTES OFFICE [address] [facility] 2 2 [facility] 15 MINUTES OFFICE 88336 [facility] MANN OUTPATIEN 2 2 DAIANA DAIANA T VISIT 15 MINUTES OFFICE 09476 [facility] MANN OUTPATIEN 2 2 DAIANA DAIANA T VISIT 15 MINUTES OFFICE [address] [facility] [facility] 2 2 [facility] 10 MINUTES OFFICE 22921 JOHNATH[facility] ESCALONA 2 2 DAIANA DAIANA T VISIT 15 MINUTES OFFICE [address] [facility] [facility] 2 2 [facility] 10 MINUTES [facility] T OFFICE 82934 JOHN[facility] ESCALONA 1 1 DAIANA DAIANA T VISIT 15 MINUTES OFFICE 41155 [facility] ESCALONA 1 1 [facility] 10 MINUTES OFFICE [address] [facility] 1 1 [facility] 10 MINUTES OFFICE 64196 JOHN[facility] ESCALONA 1 1 DAIANA DAIANA T VISIT 15 MINUTES OFFICE 93476 JOHN[facility] ESCALONA 1 1 DAIANA DAIANA T VISIT 15 MINUTES OFFICE 72808 JOHNATH[facility] ESCALONA 1 1 DAIANA DAIANA T VISIT 15 MINUTES OFFICE 40655 [facility] ESCALONA 1 1 DAIANA DAIANA T VISIT 15 MINUTES OFFICE 59422 [facility] ESCALONA 1 1 [facility] 10 MINUTES OFFICE 58538 JOHN[facility] ESCALONA 1 1 DAIANA DAIANA T VISIT 15 MINUTES OFFICE 19985 [facility] ESCALONA 1 1 [facility] 10 MINUTES OFFICE 28141 [place] D[facility]EL [facility]EL 1 1 [facility] T VISIT INTERNAL 10 MEDI MINUTES OFFICE 49745 [facility] ESCALONA 1 1 [facility] 10 MINUTES OFFICE 40771 JOHN[facility] ESCALONA 1 1 DAIANA DAIANA T VISIT 15 MINUTES OFFICE 58386 [facility] ESCALONA 1 1 [facility] 15 MINUTES OFFICE [address] [facility] [facility]PAT[facility] 1 1 [facility] 10 MINUTES OFFICE [address] [facility] [facility]PAT[facility] 0 0 [facility] 15 MINUTES OFFICE [address] [facility] [facility] 0 0 [facility] MIN[address]ES OFFICE [address] [facility] 0 0 [facility] 10 MINUTES OFFICE 91042 JOHN[facility] HUTCHINSONPATIEN 0 0 DAIANA DAIANA T VISIT 15 MINUTES EMERGENCY 28174 [facility] 0 0 [facility] T VISIT LOW/MODER SEVERITY [facility] T EMERGENCY 64517 DAO PALACIOS 0 0 EMERGENCY GRE DEPARTMEN SERVICES T VISIT MODERATE SEVERITY OFFICE 30137 [facility] MANN OUTPATIEN 0 0 NORBERTO Johnson T VISIT 15 MINUTES OFFICE 97490 [facility] OUTPATIEN 0 0 NORBERTO Johnson T VISIT 15 MINUTES OFFICE 08091 [facility] MANN OUTPATIEN 0 0 NORBERTO Johnson T VISIT 15 MINUTES EMERGENCY 39898 DAO CARDOZA, 0 0 EMERGENCY KAJAL DEPARTMEN SERVICES O T VISIT MODERATE ASSOCIATE SEVERITY S [facility]EN [facility] T EMERGENCY 68915 [facility] 0 0 [facility] DEPART[facility] INC T VISIT LOW/MODER SEVERITY PERIODIC 70034 [facility] PREVENTIV 0 0 ELEMENTAR ELEMENTAR E MED EST Y [facility] PATIENT [facility] 12-17YRS CLINIC CLINIC OFFICE 15953 [facility] MANN OUTPATIEN 0 0 NORBERTO Johnson T VISIT 15 MINUTES OFFICE 69340 [facility] MANN OUTPATIEN 0 0 NORBERTO Johnson T VISIT 15 MINUTES [facility] 0 [facility] T OFFICE 99941 [facility] MANN OUTPATIEN 9 9 NORBERTO Johnson T VISIT 15 MINUTES OFFICE 90377 [facility] MANN OUTPATIEN 9 9 NORBERTO Johnson T VISIT 15 MINUTES EMERGENCY 54336 DAO JIANG, [address] [facility] SERVICES T VISIT HIGH/URGE ASSOCIATE NT S SEVERITY EMERGENCY 38914 [facility] 9 9 [facility] DEPARTMEN INC T VISIT LOW/MODER SEVERITY [facility] - 9 9 [facility] OUT[facility] T OFFICE 65624 [facility] M[facility] OUTPATIEN 9 9 NORBERTO Johnson T VISIT 15 MINUTES OFFICE 67411 [facility] M[facility] OUTPATIEN 9 9 NORBERTO Johnson T VISIT 15 MINUTES OFFICE 58307 [facility] MANN OUTPATIEN 8 8 NORBERTO Johnson T VISIT 15 MINUTES [facility] 8 8 [facility] T EMERGENCY 37446 [facility] 8 8 [facility] DEPARTMEN INC T VISIT LOW/MODER SEVERITY EMERGENCY 34995 SHEILA MCCALL, 8 8 [facility] CORPOR[facility] T VISIT ON MODERATE SEVERITY OFFICE 54088 [facility] MANN OUTPATIEN 8 8 NORBERTO THORNTON W T VISIT 25 MINUTES [facility]OSP[facility] - 8 8 [facility] T EMERGENCY 61091 [facility] 8 8 [facility] DEPARTMEN INC T VISIT LOW/MODER SEVERITY [facility] - 8 8 [facility] OUT[facility] INC T EMERGENCY 94997 SOSA SORACHEL, 8 8 [facility] CORPORATI O T VISIT ON MODERATE SEVERITY EMERGENCY [address] [facility] [address] [facility] DEPARTMEN INC T VISIT LOW/MODER SEVERITY OFFICE 31819 [facility] MANN OUTPATIEN 8 8 NORBERTO Johnson T VISIT 15 MINUTES OFFICE 26639 KRISTINE CARMONA OUTPATIEN 8 8 PETER Solis T NEW 30 MINUTES HOSP[facility] [address] [facility] OUTPATIEN INC T OFFICE 47666 JOHNATH[facility] MANN OUTPATIEN 8 8 NORBERTO Johnson T NEW 30 MINUTES OFFICE 26993 [place] SUKHJINDER [facility]CORNEL 8 8 RON Villarreal VISIT INTERNAL 15 MED MINUTES [facility]OSP[facility] [address] [facility] OUTPATIEN INC T OFFICE 60289 [place] [facility] 8 Cherelle VELASQUEZ JR VISIT INTERNAL HELADIO F 15 MED MINUTES
--- OUTSIDE RECORDS SUMMARY | 2017-06-28 03:46 | External Medical Summary Rpt | CCD ---
Author Author , LAUREN Organization LAUREN Address Unknown Phone [email or web address] Immunization Name Date Rout CVX Reac Dose Comm Prov Is Faci e tion ent ider Refu lity Give sed n Tdap 03-0 115 999 Hist H149 No H149 , 8-20 oric Adso 10 al rbed Info rmat ion - Sour ce Unsp ecif ied DTaP 04-2 107 999 Hist H149 No H149 , UF 3-20 oric 03 al Info rmat ion - Sour ce Unsp ecif ied Vari 12-0 21 999 Hist H149 No H149 cell 5-20 oric a 01 al Info rmat ion - Sour ce Unsp ecif ied MMR 12-0 3 999 Hist H149 No H149 5-20 oric 01 al Info rmat ion - Sour ce Unsp ecif ied [place] 12-0 10 999 Hist H149 No H149 o-IP 5-20 oric V 01 al Info rmat ion - Sour ce Unsp ecif ied DTaP 02-2 107 999 Hist H149 No H149 , UF 4-19 oric 99 al Info rmat ion - Sour ce Unsp ecif ied MMR 02-2 3 999 Hist H149 No H149 4-19 oric 99 al Info rmat ion - Sour ce Unsp ecif ied [place] 12-3 2 999 Hist H149 No H149 o-OP 0-19 oric V 98 al Info rmat ion - Sour ce Unsp ecif ied Hib- 12-3 51 999 Hist H149 No H149 Hep 0-19 oric B 98 al (Com Info vax) rmat ion - Sour ce Unsp ecif ied DTaP 06-0 107 999 Hist H149 No H149 , UF 9-19 oric 98 al Info rmat ion - Sour ce Unsp ecif ied Hib, 03-3 17 999 Hist H149 No H149 UF 1-19 oric 98 al Info rmat ion - Sour ce Unsp ecif ied [place] 03-3 10 999 Hist H149 No H149 o-IP 1-19 oric V 98 al Info rmat ion - Sour ce Unsp ecif ied DTaP 03-3 107 999 Hist H149 No H149 , UF 10-03 oric 98 al Info rmat ion - Sour ce Unsp ecif ied Hib, 01-2 17 999 Hist H149 No H149 UF 06-03 oric 98 al Info rmat ion - Sour ce Unsp ecif ied DTaP -2 107 999 Hist H149 No H149 , UF 06-03 oric 98 al Info rmat ion - Sour ce Unsp ecif ied [place] 01-2 10 999 Hist H149 No H149 o-IP - oric V 98 al Info rmat ion - Sour ce Unsp ecif ied Hep 01-0 8 999 Hist H149 No H149 B, 06-03 oric ped/ 98 al adol Info rmat ion - Sour ce Unsp ecif ied
--- OUTSIDE RECORDS SUMMARY | 2017-06-28 03:46 | External Medical Summary Rpt ---
Author Author [employer], [employer] Organization [employer] Address Unknown Phone Unavailable Results Treponema pallidum IgG Ab [Presence] in Serum by Immunoassay Observa Value Referen Units Interpr Notes Date tion ce etation Range COLLECT NA No No No No Mar 07 OR informa informa informa informa 2017 tion in tion in tion in tion in 6:00 AM source source source source data data data data ETHNICI W No No No No Mar 07 TY informa informa informa informa 2017 tion in tion in tion in tion in 6:00 AM source source source source data data data data PURPOSE ROUTINE No No No No Mar 07 OF informa informa informa informa 2017 EXAM tion in tion in tion in tion in 6:00 AM source source source source data data data data SPECIME BLOOD No No No No Mar 07 N informa informa informa informa 2017 SOURCE tion in tion in tion in tion in 6:00 AM source source source source data data data data CHART [id number] No No No No Mar 07 NUMBER informa informa informa informa 2017 tion in tion in tion in tion in 6:00 AM source source source source data data data data Trepone NON-DARRELL No No No METHOD Mar [address] informa informa informa OF 2017 pallidu tion in tion in tion in ANALYSI 6:00 AM m IgG source source source S: Ab data data data EIANORM [Presen AL ce] in RANGE: Serum NON-DARRELL by CTIVE\. Immunoa br\This ssay report contain s patient informa tion that must be protect ed in accorda nce with the Health Insuran ce Portabi lity and Account ability Act. Treponema pallidum IgG Ab [Presence] in Serum by Immunoassay Observa Value Referen Units Interpr Notes Date tion ce etation Range COLLECT NA No No No No Mar 07 OR informa informa informa informa 2017 tion in tion in tion in tion in 6:00 AM source source source source data data data data ETHNICI W No No No No Mar 07 TY informa informa informa informa 2017 tion in tion in tion in tion in 6:00 AM source source source source data data data data PURPOSE ROUTINE No No No No Mar 07 OF informa informa informa informa 2017 EXAM tion in tion in tion in tion in 6:00 AM source source source source data data data data SPECIME BLOOD No No No No Mar 07 N informa informa informa informa 2017 SOURCE tion in tion in tion in tion in 6:00 AM source source source source data data data data CHART [id number] No No No No Mar 07 NUMBER informa informa informa informa 2017 tion in tion in tion in tion in 6:00 AM source source source source data data data data Trepone Pending No No No \.br\Mar 07 ma informa informa informa is 2017 pallidu tion in tion in tion in report 6:00 AM m IgG source source source contain Ab data data data s [Presen patient ce] in Serum informa by tion Immunoa that ssay must be protect ed in accorda nce with the Health Insuran ce Janessa patel and Account ability Act.
--- OUTSIDE RECORDS SUMMARY | 2017-06-28 03:46 | External Medical Summary Rpt ---
[...] source source data data data data CHART [id number] No No No No Mar 07 NUMBER [...] source source data data data data CHART [id number] No No No No Mar 07 NUMBER [...]
--- OUTSIDE RECORDS SUMMARY | 2017-06-28 03:46 | External Medical Summary Rpt | CCD ---
Author Author , LAUREN Organization LAUREN Address Unknown Phone [email or web address] Immunization Name Date Rout CVX Reac Dose [...]
== END 2017-06-23 20:56 | disposition home or self-care (01) ==
LOC: ER 19:44
PROC: 0HQDXZZ Repair Right Lower Arm Skin, External Approach (ICD-10-PCS; principal; 2017-06-23)
DX: S61.511A Laceration without foreign body of right wrist, initial encounter (principal); W25.XXXA Contact with sharp glass, initial encounter; Y92.9 Unspecified place or not applicable; Z88.1 Allergy status to other antibiotic agents; Z88.2 Allergy status to sulfonamides; Z88.6 Allergy status to analgesic agent; J45.909 Unspecified asthma, uncomplicated; F17.210 Nicotine dependence, cigarettes, uncomplicated; Z23 Encounter for immunization